=== PATIENT | male | born 1965 | race African-American/Black ===

== ENCOUNTER 2022-07-04 12:50 | Emergency (ER) | payer OTHER ==
[~2022-07-04] VITALS: Ht 180.3 cm; Wt 74.8 kg
[2022-07-04 13:52] VITALS: BP 200/133
--- NOTE | 2022-07-04 15:09 | NUR ---
Pt remains AOX4, able to make needs known. Pt remains in lobby in stable condition
[2022-07-04] MEDS ORDERED: IBUP-1842 PO (15:50)
--- NOTE | 2022-07-04 16:03 | NUR ---
PA AWARE OF BP READING, STATES OK TO DC PT
[2022-07-04 16:04] VITALS: BP 230/110
== END 2022-07-04 16:04 | disposition home or self-care (01) ==
LOC: MED 12:50
DX: S16.1XXA Strain of muscle, fascia and tendon at neck level, initial encounter (principal); Z79.1 Long term (current) use of non-steroidal anti-inflammatories (NSAID); V49.49XA Driver injured in collision with other motor vehicles in traffic accident, initial encounter; Y93.89 Activity, other specified; Y92.410 Unspecified street and highway as the place of occurrence of the external cause; Y99.8 Other external cause status
CPT/HCPCS: 72050; 99283